=== PATIENT | female | born 1945 | race Caucasian/White ===

== ENCOUNTER 2022-12-08 13:12 | Emergency (ER) | payer MEDICARE, BC, SELFPAY ==
[2022-12-08 13:25] VITALS: BP 112/63; PULSE 85; RESP 18; TEMP 37.2; O2SAT 99
--- NOTE | 2022-12-08 13:27 | ED.URI ---
HPI - URI/Sore Throat General Stated Complaint: Sinus Time Seen by Provider: 12/08/22 13:27 Source: patient Mode of arrival: ambulatory Limitations: no limitations History of Present Illness HPI Narrative: Amira is a 77-year-old female patient presenting to the clinic today with complaints of sinus congestion and postnasal drip. She reports symptoms began on Saturday. She denies any fever or chills. No known exposure to anyone with COVID, flu, or strep. MD elicited complaint: sore throat and nasal congestion Review of Systems Review of Systems: Pertinent positives per HPI. Patient denies any fever, chills, rash, headache, visual changes, dizziness, shortness of breath, chest pain, palpitations, nausea, vomiting, diarrhea, constipation, abdominal pain, or any urinary issues. PMFSH Comments At the time of my signature, I reviewed and agree with the nursing past medical, surgical, social, and family history. There is no relevant family history pertinent to the patient complaint. Exam Narrative: General: Well-developed, well nourished, in no apparent distress Head: Normocephalic, atraumatic Eyes: Pupils equally round and reactive to light bilaterally, EOM intact, sclera and conjunctive clear, no discharge, lids normal Ears: TMs intact and congested, ear canals clear, no drainage, grossly hearing normal. Nose: Nares patent, clear nasal discharge, no inflammation, no sinus tenderness. Mouth: Oral pharynx without lesions or masses, good dentition, MMM. Postnasal drip Neck: Supple, trachea midline, no enlargement of anterior or posterior cervical nodes, no thyroid masses or goiter palpable. Cardio: Regular rate and rhythm, s1 and s2 normal, no murmur appreciated. Resp: Clear to auscultation bilaterally, no rhonchi, rales, wheezing or rubs Course Course Emergency Course: Portions of this record may have been created with voice recognition software. Level of Care: Express Care Visit Vital Signs Vital signs: Vital signs reviewed MDM - URI/Sore Throat MDM Narrative Medical decision making narrative: At the time of visit patient is resting comfortably on exam table. COVID testing was positive in the clinic today. Patient reports her symptoms are improving and she is not on day 5. Supportive measures were discussed with the patient she voiced understanding discharge instructions agrees to treatment plan. Differential Diagnosis Differential diagnosis: Likely upper respiratory infection, otitis media, sinusitis, viral infection, bronchitis, influenza, pharyngitis and other (COVID) Discharge Plan Discharge Clinical Impression: COVID-19 Patient Disposition: Home, Self-Care Condition: Stable Instructions: Antibiotic Form, COVID-19 (Coronavirus Disease 2019) (ED), How to Recover from COVID-19 at Home (ED) Additional Instructions: COVID testing was positive in the clinic today. You are out of the window for antiviral treatment You may come out of isolation tomorrow as long as you been fever free for 24 hours without the use of Tylenol or Motrin. Fever free is considered 100.3? F or less Increase fluids and stay well hydrated Tylenol/motrin for pain/fever Flonase and OTC antihistamines as directed Vicks vapor rub to open sinuses Sinus rinses for congestion Cepacol spray, cough drops, throat lozenges, warm tea with honey/lemon, gargle salt water to soothe throat BRAT diet for diarrhea Clear liquids x 24 hours then advance as tolerated for nausea/vomiting Go to the ED if you develop a worsening in your condition- high fever not controlled by Tylenol or Motrin, dehydration, weakness, lethargy, shortness of breath, or chest pain. Follow up with your PCP in 3-5 days if symptoms persist. Follow-up/Referrals: PHYSICIAN,PLANT BUYER [Primary Care Provider] - Time of Disposition: 13:42 Quality NIHSS Nursing Documentation ED NIHSS nursing documentation: reviewed/agree
--- NOTE | 2022-12-08 13:44 | PC.NURSE ---
documentation completed per teja waddell rn and reviewed
== END 2022-12-08 13:45 | disposition home or self-care (01) ==
PROVIDERS: Emergency Provider Nurse Practitioner Family
DX: U07.1 COVID-19 (principal); G30.9 Alzheimer's disease, unspecified; F02.80 Dementia in other diseases classified elsewhere, unspecified severity, without behavioral disturbance, psychotic disturbance, mood disturbance, and anxiety; I10 Essential (primary) hypertension
CPT/HCPCS: 87426; 99213; C9803; G0463

== ENCOUNTER 2023-06-29 15:34 | Emergency (ER) | payer MEDICARE, BC, SELFPAY ==
[2023-06-29 15:51] VITALS: BP 119/67; PULSE 96; RESP 16; TEMP 36.6; O2SAT 99
--- NOTE | 2023-06-29 16:09 | ED.URI ---
HPI - URI/Sore Throat General Chief Complaint: Upper Respiratory Infection Stated Complaint: cough Time Seen by Provider: 06/29/23 16:19 Source: patient and RN notes reviewed Mode of arrival: ambulatory Limitations: no limitations History of Present Illness HPI Narrative: 78-year-old female presents with concern for 4 day history of cough, nasal drainage. She denies fever, body aches, chills, sweats. She denies taking any [id number] medications for her symptoms. She denies shortness of breath. She denies known sick contacts MD elicited complaint: cough Related Data Home Medications Medication Instructions Recorded Confirmed atorvastatin 40 mg tablet 40 mg PO DAILY 06/29/23 06/29/23 escitalopram oxalate 20 mg tablet 20 mg PO DAILY 06/29/23 06/29/23 hydrochlorothiazide 12.5 mg tablet 12.5 mg PO DAILY 06/29/23 06/29/23 lorazepam 0.5 mg tablet See Rx Instructions .Route .COMPLEX 06/29/23 06/29/23 metoprolol succinate 100 mg 100 mg PO DAILY 06/29/23 06/29/23 tablet,extended release 24 hr olmesartan 20 mg tablet 20 mg PO DAILY 06/29/23 06/29/23 Allergies Allergy/AdvReac Type Severity Reaction Status Date / Time Penicillins Allergy Intermediate Hives Verified 06/29/23 16:02 Review of Systems Review of Systems: CONSTITUTIONAL: Denies malaise, chills, sweats, or fever. EYES: Denies visual changes, redness, or discharge. ENT: Reports rhinorrhea. Denies congestion, sinus pain, otalgia and sore throat. CARDIOVASCULAR: Denies chest pain, palpitations, or edema. RESPIRATORY: Reports cough. Denies dyspnea. GASTROINTESTINAL: Denies abdominal pain, nausea, vomiting, diarrhea SKIN: Denies rash or itching. MUSCULOSKELETAL: Denies myalgia. NEUROLOGIC: Denies headache. All systems reviewed & are unremarkable except as noted in HPI and below PMFSH Comments At time of signature, agree with nursing past medical, surgical, social and family history. There is no relevant family history pertinent to the presenting complaint Exam Narrative: GENERAL: Well-appearing, well-nourished, and in no acute distress. HEAD: Normocephalic EYES: PERRLA, conjunctivae clear ENT: Nares clear, turbinates edematous and erythematous, clear discharge. Mucous membranes moist. TM pearly luna with sharp light reflex bilaterally; no tragal tenderness. Oropharynx not erythematous without lesions. Tonsils not enlarged and without exudate, no drooling, no hoarseness, no trismus, uvula midline. NECK: Supple. No lymphadenopathy CHEST: Clear to auscultation, breath sounds equal. No wheezing, rhonchi, rales, or stridor. No respiratory distress, speaks in full sentences. HEART: Regular rate and rhythm. No murmur heard. SKIN: Warm, dry, no rash. NEURO: Alert and oriented x3. PSYCH: Normal mood and affect Course Course Emergency Course: Patient is aware of diagnosis, understands and agrees to treatment plan. Anticipatory guidance given. Patient agrees to follow-up as directed and is aware of reasons to seek care at the emergency department. Portions of this record may have been created with voice recognition software Level of Care: Express Care Visit Vital Signs Vital signs: Vital Signs Temperature 97.8 F 06/29/23 15:51 Pulse Rate 96 06/29/23 15:51 Respiratory Rate 16 06/29/23 15:51 Blood Pressure 119/67 06/29/23 15:51 Pulse Oximetry 99 06/29/23 15:51 Oxygen Delivery Room Air 06/29/23 15:51 Temperature 97.8 F 06/29/23 15:51 Pulse Rate 96 06/29/23 15:51 Respiratory Rate 16 06/29/23 15:51 Blood Pressure 119/67 06/29/23 15:51 Pulse Oximetry 99 06/29/23 15:51 Oxygen Delivery Room Air 06/29/23 15:51 Reviewed. MDM - URI/Sore Throat MDM Narrative Medical decision making narrative: Differential diagnosis considered: Torres virus, strep pharyngitis, allergic rhinitis, upper respiratory tract infection, sinusitis, rhinosinusitis, nasopharyngitis. viral pharyngitis, otitis media, otitis externa, pneumonia
== END 2023-06-29 16:33 | disposition home or self-care (01) ==
PROVIDERS: Emergency Provider Nurse Practitioner; PCP Internal Medicine
DX: J40 Bronchitis, not specified as acute or chronic (principal); G30.9 Alzheimer's disease, unspecified; F02.80 Dementia in other diseases classified elsewhere, unspecified severity, without behavioral disturbance, psychotic disturbance, mood disturbance, and anxiety; I10 Essential (primary) hypertension; L40.9 Psoriasis, unspecified; F41.9 Anxiety disorder, unspecified; F32.A Depression, unspecified
CPT/HCPCS: 99213; G0463